=== PATIENT | female | born 1950 ===

== ENCOUNTER 2022-03-08 21:13 | Emergency (ER) | payer SELFPAY ==
--- NOTE | 2022-03-08 22:45 | Cat Scan Report ---
CT head/brain wo con INDICATION / CLINICAL INFORMATION: trauma head injury. TECHNIQUE: Axial CT imaging of the brain was obtained without contrast. Coronal and sagittal reformatted imaging obtained and reviewed. All CT scans at this location are performed using CT dose reduction for ALAR A by means of automated exposure control. COMPARISON: None available. FINDINGS: No intracranial hemorrhage, mass or midline shift is noted. No extra-axial fluid collection or sugges tion of acute territorial infarction. Ventricular system and basilar cisterns are unremarkable. There is calcification within the basal ganglia bilaterally. Mild microvascular angiopathy is present . Moderate cerebral and cerebellar atrophy noted. Mucous retention cyst is present in the left maxillary antrum. Mild mucosal thickening present in bot h maxillary sinuses. The remainder of the paranasal sinuses are well aerated and clear. No calvarial abnormality. No significant soft tissue abnormality. IMPRESSION: 1. No acute intracranial abnormality. 2. Advanced age-related changes. Signer Name: Jaimee Quiroz MD Signed: 03/08/2022 10:41 PM Workstation Name: [id number]
[2022-03-08 22:53] LABS: Basophils # (Auto) 0.1 K/mm3 (0.0-0.1); Eosinophils # (Auto) 0.1 K/mm3 (0.0-0.4); Eosinophils % (Auto) 0.9 % (0.0-4.3); Hematocrit 35.1 % (30.3-42.9); Hemoglobin 12.1 gm/dl (10.1-14.3); Lymphocytes % (Auto) 30.8 % (13.4-35.0); Mean Corpuscular HGB Conc 35 % (30-34); Mean Corpuscular Volume 93 fl (79-97); Monocytes # (Auto) 0.7 K/mm3 (0.0-0.8); Monocytes % (Auto) 10.5 % (0.0-7.3); Platelet Count 247 K/mm3 (140-440); Red Blood Count 3.79 M/mm3 (3.65-5.03); Red Cell Distribution Width 14.5 % (13.2-15.2)
--- NOTE | 2022-03-08 23:01 | Cat Scan Report ---
CT cervical spine wo con INDICATION / CLINICAL INFORMATION: trauma head injury. TECHNIQUE: Axial CT imaging of the cervical spine. Was obtained without contrast. Coronal and sagittal reformatt ed imaging obtained and reviewed. All CT scans at this location are performed using CT dose reductio n for ALARA by means of automated exposure control. COMPARISON: None available. FINDINGS: No evidence of fracture or malalignment involving the cervical spine. Vertebral body heights and disc spaces are fairly well-preserved for the patient's age. There is a sclerotic lesion in the left aspe ct of the C3 vertebral body measuring approximately 8 mm. It is unclear if this is a bone island vers us a possible blastic metastasis. Paravertebral soft tissues are normal. Visualized lung apices are grossly clear. IMPRESSION: 1. No evidence of cervical spine fracture or traumatic malalignment. 2. Sclerotic bone lesion present in the left aspect of C3 vertebral body. It is unclear if this repre sents a sclerotic osseous metastasis versus benign bone island. Correlation with PSA levels and prost ate exam is recommended. Signer Name: Jaimee Quiroz MD Signed: 03/08/2022 10:56 PM Workstation Name: [id number]
--- NOTE | 2022-03-08 23:02 | XRay Report ---
LEFT ANKLE, 2 VIEWS INDICATION / CLINICAL INFORMATION: fall/pain. COMPARISON: None available. FINDINGS: No fracture or dislocation. Calcific atherosclerotic disease is present throughout the visualized sof t tissues in a pattern suggestive of diabetic type atherosclerotic disease. IMPRESSION: 1. No fracture or malalignment. Signer Name: Jaimee Quiroz MD Signed: 03/08/2022 10:58 PM Workstation Name: [id number]
--- NOTE | 2022-03-08 23:03 | XRay Report ---
RIGHT KNEE, 3 VIEWS INDICATION / CLINICAL INFORMATION: fall/pain. COMPARISON: None available. FINDINGS: Moderate degenerative changes are present within the knee, most notable in the medial joint space. No acute fracture or dislocation. No appreciable joint effusion. Atherosclerotic calcific plaque noted in the visualized vessels. IMPRESSION: No fracture or malalignment. Signer Name: Jaimee Quiroz MD Signed: 03/08/2022 10:59 PM Workstation Name: [id number]
[2022-03-08] MEDS ORDERED: LIDOCAINE (1%) 10 MG/1 ML VIAL 20 ML MDV INFILTRATI ONE (23:11)
[2022-03-08 23:14] LABS: Blood Urea Nitrogen 18 mg/dL (7-17); Calcium 9.3 mg/dL (8.4-10.2); Hemolysis Index 7
[2022-03-08 23:18] LABS: BUN/Creatinine Ratio 36
--- NOTE | 2022-03-08 23:33 | Emergency Department Report ---
ED General Adult HPI - General Chief complaint: Fall Stated complaint: GROUND LEVEL FALL/LEFT LEG PAIN Time Seen by Provider: 03/08/22 21:52 Source: EMS Mode of arrival: Stretcher Limitations: No Limitations - History of Present Illness Initial comments: The patient presents to the emergency department with her family for [place] Patient is [place]-speaking and her son interprets for her. Patient lost her balance on escalator which resulted in her falling. Patient denies loss of consciousness. Patient complains of right knee and left ankle pain. The son is concerned because the patient had a recent hernia surgery within the last 3 to 4 weeks. Patient does complain of some mild abdominal pain. -: Sudden Location: head, neck, lower extremity Severity scale (0 -10): 3 Quality: aching Consistency: constant Improves with: rest Worsens with: movement Associated Symptoms: denies other symptoms Treatments Prior to Arrival: none - Related Data Previous Rx's Medication Instructions Recorded Last Taken Type Acetaminophen/Codeine [Tylenol 1 tab PO Q6H PRN #15 tab 03/09/22 Unknown Rx /Codeine # 3 tab] Ondansetron [Zofran Odt] 4 mg PO Q4HR PRN #20 tab.rapdis 03/09/22 Unknown Rx Allergies Allergy/AdvReac Type Severity Reaction Status Date / Time No Known Allergies Allergy Unverified 03/08/22 22:13 ED Review of Systems ROS: Stated complaint: GROUND LEVEL FALL/LEFT LEG PAIN Other details as noted in HPI Comment: All other systems reviewed and negative Constitutional: denies: chills, fever Eyes: denies: eye pain, eye discharge, vision change ENT: denies: ear pain, throat pain Respiratory: denies: cough, shortness of breath, wheezing Cardiovascular: denies: chest pain, palpitations Endocrine: no symptoms reported Gastrointestinal: denies: abdominal pain, nausea, diarrhea Genitourinary: denies: urgency, dysuria, discharge Musculoskeletal: denies: back pain, joint swelling, arthralgia Skin: denies: rash, lesions Neurological: denies: headache, weakness, paresthesias Psychiatric: denies: anxiety, depression Hematological/Lymphatic: denies: easy bleeding, easy bruising ED Past Medical Hx - Social History Smoking Status: Never Smoker - Medications Home Medications: Home Medications Medication Instructions Recorded Confirmed Last Taken Type Acetaminophen/Codeine [Tylenol 1 tab PO Q6H PRN #15 tab 03/09/22 Unknown Rx /Codeine # 3 tab] Ondansetron [Zofran Odt] 4 mg PO Q4HR PRN #20 tab.rapdis 03/09/22 Unknown Rx ED Physical Exam - General Limitations: No Limitations General appearance: alert, in no apparent distress - Head Head exam: Present: atraumatic, normocephalic - Eye Eye exam: Present: normal appearance, PERRL, EOMI - ENT ENT exam: Present: mucous membranes moist - Neck Neck exam: Present: other (Tender to palpation midline C-spine) - Respiratory Respiratory exam: Present: normal lung sounds bilaterally. Absent: respiratory distress - Cardiovascular Cardiovascular Exam: Present: regular rate, normal rhythm. Absent: systolic murmur, diastolic murmur, rubs, gallop - GI/Abdominal GI/Abdominal exam: Present: soft, tenderness, normal bowel sounds. Absent: distended - Extremities Exam Extremities exam: Present: other (Patient has tenderness to palpation of the right patella in the lateral aspect of the left ankle. There is a 12 cm laceration of the left lower leg) - Back Exam Back exam: Present: normal inspection - Neurological Exam Neurological exam: Present: alert, oriented X3, CN II-XII intact. Absent: motor sensory deficit - Psychiatric Psychiatric exam: Present: normal affect, normal mood - Skin Skin exam: Present: warm, dry, intact, normal color. Absent: rash ED Course Vital Signs 03/08/22 03/08/22 03/08/22 21:33 21:46 22:00 Temperature Pulse Rate Blood Pressure O2 Sat by Pulse 97 98 100 Oximetry 03/08/22 03/08/22 03/08/22 22:12 22:14 22:16 Temperature 98 F Pulse Rate 88 Blood Pressure 152/54 O2 Sat by Pulse 100 98 Oximetry 03/08/22 03/08/22 03/08/22 22:38 22:46 23:00 Temperature Pulse Rate Blood Pressure 155/61 155/61 O2 Sat by Pulse 98 96 96 Oximetry - Laceration /Wound Repair Left Lateral Ankle Wound Location: lower extremity Wound Length (cm): 12 Wound's Depth, Shape: superficial Wound Explored: clean Betadine Prep?: Yes Anesthesia: 1% Lidocaine Wound Debrided: minimal Suture Size/Type: 3:0, nylon Number of Sutures: 11 Layer Closure?: No Sterile Dressing Applied?: Yes ED Medical Decision Making - Lab Data Result diagrams: 03/08/22 22:40 03/08/22 22:40 Lab Results 03/08/22 03/08/22 Range/Units 22:40 22:40 WBC 6.4 (4.5-11.0) K/mm3 RBC 3.79 (3.65-5.03) M/mm3 Hgb 12.1 (10.1-14.3) gm/dl Hct 35.1 (30.3-42.9) % MCV 93 (79-97) fl MCH 32 (28-32) pg MCHC 35 H (30-34) % RDW 14.5 (13.2-15.2) % Plt Count 247 (140-440) K/mm3 Lymph % (Auto) 30.8 (13.4-35.0) % [place] % (Auto) 10.5 H (0.0-7.3) % Eos % (Auto) 0.9 (0.0-4.3) % Baso % (Auto) 1.0 (0.0-1.8) % Lymph # (Auto) 2.0 (1.2-5.4) K/mm3 [place] # (Auto) 0.7 (0.0-0.8) K/mm3 Eos # (Auto) 0.1 (0.0-0.4) K/mm3 Baso # (Auto) 0.1 (0.0-0.1) K/mm3 Seg Neutrophils % 56.8 (40.0-70.0) % Seg Neutrophils # 3.6 (1.8-7.7) K/mm3 Sodium 138 (137-145) mmol/L Potassium 4.4 (3.6-5.0) mmol/L Chloride 102.1 (98-107) mmol/L Carbon Dioxide 26 (22-30) mmol/L Anion Gap 14 mmol/L BUN 18 H (7-17) mg/dL Creatinine 0.5 L (0.6-1.2) mg/dL Estimated GFR > 60 ml/min BUN/Creatinine Ratio 36 % Glucose 96 (65-100) mg/dL Calcium 9.3 (8.4-10.2) mg/dL - Radiology Data Radiology results: report reviewed - Medical Decision Making Discussed results with the patient's son Critical care attestation.: If time is entered above; I have spent that time in minutes in the direct care of this critically ill patient, excluding procedure time. ED Disposition Clinical Impression: Fall, Knee pain, Laceration, Abdominal pain, Ovarian mass Disposition: HOME / SELF CARE / HOMELESS Is pt being admited?: No Does the pt Need Aspirin: No Condition: Stable Instructions: Acute Knee Pain, Adult, Fall Prevention in the Home, Adult, [id number], Abdominal Pain, Adult Additional Instructions: return if worse Please follow-up with CLINICAL ORTHOPTIST for ovarian mass findings as discussed Referrals: ANA MONTEIRO MD [Primary Care Provider] - 3-5 Days DAVID AQUION MD [Staff Physician] - 3-5 Days Time of Disposition: 00:44
[2022-03-09] MEDS ORDERED: TETANUS,DIPH,PERTUSS(ACELL) VACCINE 0.5 ML SYRINGE IM ONE (00:16)
[2022-03-09] MEDS ORDERED: ONDANSETRON 4 MG ODT TAB PO ONE (00:22)
[2022-03-09] MEDS ORDERED: ACETAMINOPHEN W/CODEINE 300-30 MG TAB PO ONE (00:23)
--- NOTE | 2022-03-09 00:28 | Cat Scan Report ---
CT abdomen pelvis w con INDICATION / CLINICAL INFORMATION: trauma head injury. TECHNIQUE: Axial CT imaging of abdomen and pelvis was obtained with 100 mL Omnipaque 300 IV contrast. Coronal an d sagittal reformatted imaging obtained and reviewed. All CT scans at this location are performed us ing CT dose reduction for ALARA by means of automated exposure control. COMPARISON: None available. FINDINGS: CT abdomen with IV contrast demonstrates normal appearance of the liver, spleen, pancreas, kidneys, a nd adrenal glands. Gallbladder is unremarkable. No biliary dilatation. Abdominal aorta is of normal s ize and appearance. CT pelvis with contrast demonstrates right ovarian cystic mass measuring 3.5 cm. Calcifications are s een throughout the uterus probably representing multiple small uterine fibroids. No acute pelvic mass , free fluid, or inflammatory changes noted. GI track is unremarkable. Visualized lung bases do not demonstrate acute pulmonary or pleural disease. Review of skeletal structures does not demonstrate any fracture. IMPRESSION: 1. No evidence of acute traumatic injury within the abdomen or pelvis. 2. Incidental finding of a 3.5 cm right ovarian cystic mass. Given the patient's age, further follow- up on a nonemergent basis with pelvic ultrasound is recommended. Signer Name: Jaimee Quiroz MD Signed: 03/09/2022 12:23 AM Workstation Name: [id number]
[2022-03-09 02:11] VITALS: BP 148/69
== END 2022-03-09 01:50 | disposition home or self-care (01) ==
LOC: ED 21:13
DX: S81.011A Laceration without foreign body, right knee, initial encounter (principal); R10.9 Unspecified abdominal pain; N83.209 Unspecified ovarian cyst, unspecified side; W19.XXXA Unspecified fall, initial encounter; Y93.89 Activity, other specified; Y92.89 Other specified places as the place of occurrence of the external cause; Y99.8 Other external cause status
CPT/HCPCS: 12004; 36415; 70450; 72125; 73560; 73600; 74177; 80048; 85025; 90471; 90715; 99284; Q9967; J3490; Q0162